=== PATIENT | female | born 1955 | race African-American/Black ===

== ENCOUNTER 2017-06-24 08:25 | Emergency (ER) | END 2017-06-24 09:38 | disposition home or self-care (01) ==

== ENCOUNTER 2017-12-14 10:44 | Emergency (ER) | END 2017-12-14 14:30 | disposition home or self-care (01) ==

== ENCOUNTER 2018-02-24 11:41 | Emergency (ER) | END 2018-02-24 15:03 | disposition home or self-care (01) ==

== ENCOUNTER 2018-06-26 18:22 | Emergency (ER) | payer OTHER ==
[~2018-06-26] VITALS: Ht 165.1 cm; Wt 66.4 kg
[~2018-06-26 18:22] MED LIST: ACET500C5 PO; CIPR500T4 PO; D-ME473S2 PO; DOCU-144 PO; FLUT9.9S NASAL; HYDR25SU23 PR; PSEU30TA38 PO
[2018-06-26 18:35] VITALS: Ht 165.1 cm; Wt 66.4 kg
[2018-06-26] MEDS ORDERED: SOD CHLORIDE 0.9% 500 ML IV STA (18:58)
[2018-06-26] MEDS ORDERED: KETOROLAC 15 MG INJ IV STA (20:05)
[2018-06-26] MEDS ORDERED: IBUP-1541 PO (20:47)
[2018-06-26] MEDS ORDERED: AMLO-147 PO (20:47)
[2018-06-26] MEDS ORDERED: LISI40TA3 PO (20:47)
[2018-06-26] MEDS ORDERED: ATOR40TA68 PO (20:48)
[2018-06-26] MEDS ORDERED: FAMO20TA18 PO (20:48)
[2018-06-26] MEDS ORDERED: MONT10TA24 PO (20:49)
[2018-06-26 21:00] VITALS: BP 135/92; PULSE 56; RESP 18
--- NOTE | 2018-06-27 00:50 | ERD ---
ER Documentation Chief Complaint Chief Complaint glf-head injury with ko, left leg pain HPI 62-year-old female brought in by ambulance after a ground-level fall while crossing the street. She states that she was crossing the street with her granddaughter when she suddenly felt lightheaded and fell to the ground hitting the right side of her head and face. She also complains of left leg pain. She denies any associated headache, chest pain, shortness of breath, focal weakness or numbness when this happened. She remembers the whole event. She is not sure why she passed out. She states that some people helped her get up ambulance was called. She denies any recent illnesses. Currently she states she feels well other than mild right head and face pain as well as left leg pain. ROS All systems reviewed and are negative except as per history of present illness. Medications Home Meds Reported Medications Montelukast Sodium* (Montelukast Sodium*) 10 Mg Tablet, 10 MG PO QHS, #30 TAB 06/26/18 Famotidine* (Famotidine*) 20 Mg Tablet, 20 MG PO BID, #30 TAB 06/26/18 Atorvastatin* (Atorvastatin*) 40 Mg Tablet, 40 MG PO QHS, #30 TAB 06/26/18 Amlodipine Besylate* (Amlodipine Besylate*) 10 Mg Tablet, 10 MG PO DAILY, #30 TAB 06/26/18 Lisinopril* (Lisinopril*) 40 Mg Tablet, 40 MG PO DAILY, #30 TAB 06/26/18 Ibuprofen* (Ibuprofen*) 400 Mg Tablet, 400 MG PO TID, TAB 06/26/18 Discontinued Scripts Acetaminophen* (Tylophen*) 500 Mg Capsule, 1 CAP PO Q6H PRN for PAIN AND OR ELEVATED TEMP, #30 CAP Prov:KAREN PURVIS PA-C 02/24/18 Hydrocortisone Acetate (Anusol-Hc) 25 Mg Supp.rect, 1 SUPP MD QHS PRN for HEMORROID PAIN/ITCHING, #12 SUPP.RECT Prov:KAREN PURVIS PA-C 02/24/18 Docusate Sodium* (Colace*) 100 Mg Capsule, 100 MG PO TID, #30 CAP Prov:KAREN PURVIS PA-C 02/24/18 Ciprofloxacin Hcl* (Ciprofloxacin Hcl*) 500 Mg Tablet, 500 MG PO BID for 7 Days, TAB Prov:NAZ LYNNE PA-C 12/14/17 Fluticasone Propionate (Flonase Allergy Relief) 9.9 Ml [place].susp, 1 SPRAY NASAL DAILY, #1 BOTTLE TO EACH NOSTRIL Prov:NAZ LYNNE PA-C 06/24/17 Dextromethorphan Hb-Promethazine Hcl* (Promethazine DM* Syrup) 473 Ml Syrup, 5 ML PO Q6 PRN for COUGH, #100 ML Prov:NAZ LYNNE PA-C 06/24/17 Pseudoephedrine Hcl* (Pseudoephedrine Hcl*) 30 Mg Tablet, 30 MG PO Q6 PRN for CONGESTION, #30 TAB Prov:NAZ LYNNE PA-C 06/24/17 Allergies Allergies: Coded Allergies: No Known Allergy (Unverified , 06/26/18) PMhx/Soc History of Surgery: No Anesthesia Reaction: No Hx Neurological Disorder: No Hx Psychiatric Problems: No Hx Miscellaneous Medical Probl: Yes (mi and stroke 2014) Hx Alcohol Use: No Hx Substance Use: No Hx Tobacco Use: Yes Smoking Status: Current every day smoker FmHx Family History: No diabetes, No coronary disease Physical Exam Vitals Vital Signs Date Temp Pulse Resp B/P (MAP) Pulse Ox O2 O2 Flow FiO2 Time Delivery Rate 06/26/18 56 18 135/92 100 Room Air 21:00 (106) 06/26/18 99.5 90 18 127/83 98 18:35 (98) Physical Exam Const: No acute distress Head: Small right forehead hematoma with no skull depression. Contusion to right cheek. Facial bones stable. Eyes: Normal Conjunctiva, PERRLA, EOMI ENT: Normal External Ears, Nose and Mouth. Neck: Full range of motion. No meningismus. Resp: Clear to auscultation bilaterally Cardio: Regular rate and rhythm, no murmurs. 2+ radial pulses Abd: Soft, non tender, non distended. Normal bowel sounds Skin: No petechiae or rashes Back: No midline or flank tenderness Ext: Contusions to the left mendez with no deformity, joint swelling. Full range of motion at all joints. 2+ DP and PT pulses. Neur: Awake and alert, oriented x3, cranial nerves intact, strength and sensation intact in all 4 extremities. Normal speech. Psych: Normal Mood and Affect Result Diagram: 06/26/18192006/26/181920 Results 24 hrs Laboratory Tests Test 06/26/18 19:21 06/26/18 19:36 White Blood Count 5.7 10^3/ul Red Blood Count 3.65 10^6/ul Hemoglobin 12.9 g/dl Hematocrit 38.0 % Mean Corpuscular Volume 104.1 fl Mean Corpuscular Hemoglobin 35.3 pg Mean Corpuscular Hemoglobin Concent 33.9 g/dl Red Cell Distribution Width 11.9 % Platelet Count 181 10^3/UL Mean Platelet Volume 10.6 fl Immature Granulocytes % 0.300 % Neutrophils % 57.9 % Lymphocytes % 31.5 % Monocytes % 8.6 % Eosinophils % 1.4 % Basophils % 0.3 % Nucleated Red Blood Cells % 0.0 /100WBC Immature Granulocytes # 0.020 10^3/ul Neutrophils # 3.3 10^3/ul Lymphocytes # 1.8 10^3/ul Monocytes # 0.5 10^3/ul Eosinophils # 0.1 10^3/ul Basophils # 0.0 10^3/ul Nucleated Red Blood Cells # 0.0 10^3/ul Sodium Level 139 mmol/L Potassium Level 3.7 mmol/L Chloride Level 107 mmol/L Carbon Dioxide Level 25 mmol/L Anion Gap 7 Blood Urea Nitrogen 14 mg/dl Creatinine 0.73 mg/dl Est Glomerular Filtrat Rate mL/min > 60 mL/min Glucose Level 95 mg/dl Calcium Level 9.4 mg/dl Troponin I < 0.012 ng/ml Bedside Glucose 81 mg/dL Current Medications Medications Dose Sig/Gabbie Start Time Status Last (Trade) Ordered Route PRN Stop Time Admin Dose Reason Admin Sodium 500 ml @ Q1H STAT 06/26/18 DC 06/26/18 Chloride 500 mls/hr IV 18:58 19:54 06/26/18 19:57 Ketorolac 15 mg ONCE STAT 06/26/18 DC 06/26/18 Tromethamine IV 20:05 20:53 (Toradol) 06/26/18 20:06 Procedures/MDM EMERGENT LABS AND DIAGNOSTIC STUDIES: Lab Results above were reviewed and interpreted by me. CBC: no anemia or evidence of infection BMP: No evidence of electrolyte abnormality, renal failure, hypoglycemia, Troponin within normal limits, not indicative of cardiac ischemia 12-lead EKG was interpreted by Maria Del Carmen Salinas MD: Normal Sinus Rhythm Normal axis Normal intervals No acute ST or T wave changes suggestive of acute ischemia or STEMI. Radiology Results as interpreted by Radiology below were reviewed by Jose Alejandro Salinas MD: CT head shows right forehead hematoma, no other acute abnormalities Chest x-ray shows no acute abnormalities Left tib-fib x-ray shows no acute fracture or dislocation. Only soft tissue swelling. Initial Nursing notes reviewed. Previous Medical Records requested via the Electronic Health Record. EMERGENCY DEPARTMENT COURSE / MEDICAL DECISION MAKING: [] Patient's blood pressure was elevated (>120/80) but appears stable without evidence of hypertensive emergency or urgency. The patient was counseled about the risks of hypertension and urged to pursue outpatient monitoring and therapy within a week with their primary care physician. Departure Diagnosis: Primary Impression: Acute head injury Encounter type: initial encounter Qualified Codes: S09.90XA - Unspecified injury of head, initial encounter Additional Impressions: Traumatic hematoma of forehead Encounter type: initial encounter Qualified Codes: S00.83XA - Contusion of other part of head, initial encounter Syncope Syncope type: unspecified Qualified Codes: R55 - Syncope and collapse Contusion of leg, left Encounter type: initial encounter Qualified Codes: S80.12XA - Contusion of left lower leg, initial encounter Condition: Stable Patient Instructions: Contusion, Lower Extremity, HEAD INJURY, No Wake-Up (Adult), Syncope, Unk Cause COLT SALINAS MD Jun 27, 2018 00:50
== END 2018-06-26 21:08 | disposition home or self-care (01) ==
LOC: E/R 18:22
DX: S80.12XA Contusion of left lower leg, initial encounter (principal); S09.90XA Unspecified injury of head, initial encounter; S00.83XA Contusion of other part of head, initial encounter; R55 Syncope and collapse; F17.210 Nicotine dependence, cigarettes, uncomplicated; W18.30XA Fall on same level, unspecified, initial encounter; Y92.410 Unspecified street and highway as the place of occurrence of the external cause
CPT/HCPCS: 36415; 70450; 71045; 73590; 80048; 82962; 84484; 85025; 93005; 96374; J1885; J7040; Z7502